=== PATIENT | female | born 1995 | race Caucasian/White ===

== ENCOUNTER 2018-07-18 00:12 | Emergency (ER) | payer OTHER ==
[2018-07-18] MEDS: ONDANSETRON 4 MG INJ IV (00:39)
[2018-07-18] MEDS: SOD CHLORIDE 0.9% 1,000 ML IV (00:48)
[2018-07-18 01:03] LABS: WHITE BLOOD COUNT 7.7 10^3/ul (4.8-10.8)
[2018-07-18 01:03] LABS: ADD MAN DIFF? NO; BASOPHIL # 0.1 10^3/ul (0.0-0.1); BASOPHILS % 0.8 % (0.0-2.0); EOSINOPHILS % 0.5 % (0.0-7.0); HEMATOCRIT 39.2 % (37.0-47.0); HEMOGLOBIN 12.6 g/dl (12.0-16.0); LYMPHOCYTES # 2.5 10^3/ul (0.8-2.9); LYMPHOCYTES % 31.8 % (15.0-51.0); MEAN CORPUSCULAR HEMOGLOBIN 27.9 pg (29.0-33.0); MEAN CORPUSCULAR HGB CONC 32.1 g/dl (32.0-37.0); MEAN CORPUSCULAR VOLUME 86.7 fl (82.0-101.0); MEAN PLATELET VOLUME 10.5 fl (7.4-10.4); MONOCYTE # 0.5 10^3/ul (0.3-0.9); NEUTROPHIL # 4.7 10^3/ul (1.6-7.5); NEUTROPHILS % 60.6 % (39.0-77.0); PLATELET COUNT 297 10^3/UL (140-415); RED BLOOD COUNT 4.52 10^6/ul (4.20-5.40); RED CELL DISTRIBUTION WIDTH 13.7 % (11.5-14.5)
[2018-07-18] MEDS: morphine 2 MG INJ IV (01:03)
[2018-07-18 01:22] LABS: INR 0.89; PROTIME 12.1 Sec (11.9-14.9); PT RATIO 0.9
[2018-07-18 01:27] LABS: ANION GAP 16 (5-13); BLOOD UREA NITROGEN 8 mg/dl (7-20); CALCIUM 9.9 mg/dl (8.4-10.2); CARBON DIOXIDE 20 mmol/L (21-31); CHLORIDE 109 mmol/L (97-110); CREATININE 0.68 mg/dl (0.44-1.00); Estimated GFR > 60 mL/min (>60); GLUCOSE 95 mg/dl (70-220); POTASSIUM 3.7 mmol/L (3.5-5.1); SODIUM 145 mmol/L (135-144)
[2018-07-18 01:35] LABS: AMPHETAMINE/METHAMPHETAMINE Negative (NEGATIVE); BARBITURATES Negative (NEGATIVE); BENZODIAZEPINES Negative (NEGATIVE); CANNABINOIDS Positive (NEGATIVE); COCAINE Negative (NEGATIVE); OPIATES Negative (NEGATIVE)
[2018-07-18] MEDS: IOHEXOL 300MG/ML 150 ML BTL (02:00)
[2018-07-18] MEDS: SOD CHLORIDE 0.9% 100 ML (02:00)
== END 2018-07-18 02:28 | disposition home or self-care (01) ==
LOC: E/R 00:12
DX: M79.604 Pain in right leg (principal); R11.10 Vomiting, unspecified; M79.601 Pain in right arm; R07.81 Pleurodynia; J45.909 Unspecified asthma, uncomplicated; R40.2252 Coma scale, best verbal response, oriented, at arrival to emergency department; R40.2362 Coma scale, best motor response, obeys commands, at arrival to emergency department; R40.2142 Coma scale, eyes open, spontaneous, at arrival to emergency department
CPT/HCPCS: 70450; 71045; 71260; 72125; 72128; 72131; 74177; 80048; 80307; 81025; 85025; 85610; 85730; 96374; 96375; 99285-25